=== PATIENT | male | born 1950 | race Two or more races ===

== ENCOUNTER → 2017-08-04 | Outpatient (CLI) | payer MEDICARE, OTHER, BC ==
--- NOTE | 2017-08-04 10:01 | RAD ---
CT of the abdomen and pelvis without contrast, 08/04/2017: History: Right flank pain, kidney stones Noncontrast scans were obtained utilizing the renal stone protocol. Comparison is made to a study from 11/23/2011. No intrarenal calculi are identified. There is minimal bilateral renal cortical scarring. The renal collecting systems systems and ureters are not dilated. No ureteral calculus is seen. The prostate gland is mildly enlarged and contains several calcifications. There is mild diffuse bladder wall thickening similar to that seen on the previous study. This is probably due to chronic bladder outlet obstruction related to the enlarged prostate. The liver is of lower than normal density in a diffuse pattern compatible with fatty change. There is a 3.5 cm area of relatively increased density in the right lobe of the liver. A similar size lesion of decreased density was present in this portion of the liver on the previous postcontrast CT exam. The gallbladder is unremarkable. No pancreatic abnormality is seen. The spleen is of normal size. Mild aortoiliac calcific plaquing is present without evidence of aneurysm. No abdominal or pelvic adenopathy is seen. Colonic diverticula are present, most numerous in the sigmoid region. No paracolonic inflammatory process is seen. The bowel loops are not dilated. The appendix is not clearly seen. No dilated appendix is evident. No free air or free fluid is present in the abdomen or pelvis. A small sclerotic focus in the left humeral neck is probably a bone island. There are moderate scattered hypertrophic degenerative changes in the spine. IMPRESSION: 1. No urinary tract calculi are identified. 2. Hepatic steatosis. 3. Right hepatic mass which is of similar size when compared to the 2012 exam. MR scanning may be helpful for characterization, if clinically indicated. 4. Sigmoid diverticulosis. 5. Nonspecific prostatic enlargement with mild associated diffuse bladder wall thickening. PQRS Compliance Statement: One or more of the following individualized dose reduction techniques were utilized for this examination: 1. Automated exposure control 2. Adjustment of the mA and/or kV according to patient size 3. Use of iterative reconstruction technique
== END | disposition home or self-care (01) ==
LOC: CT 09:00
PROVIDERS: ATTEND Family Medicine
DX: N20.0 Calculus of kidney (principal); K57.30 Diverticulosis of large intestine without perforation or abscess without bleeding; N40.0 Benign prostatic hyperplasia without lower urinary tract symptoms; K76.0 Fatty (change of) liver, not elsewhere classified
CPT/HCPCS: 74176

== ENCOUNTER → 2017-08-10 | Outpatient (CLI) | payer MEDICARE, OTHER, BC ==
--- NOTE | 2017-08-10 09:13 | RAD ---
Complete abdominal ultrasound 08/10/2017 Indication: Elevated LFTs. Comparison study: CT of the abdomen and pelvis without contrast August 04, 2017., CT of the abdomen and pelvis without contrast November 23, 2011 Findings: Ultrasound evaluation of the abdomen was performed. Static images are submitted to PACS. Visualized portions of the pancreas are grossly unremarkable. Visualized portions of the aorta and IVC are unremarkable. The gallbladder is normal in appearance without evidence of wall thickening, stones, or sludge. The portal veins somewhat poorly visualized but appears to be patent and demonstrate flow in normal direction. The liver is diffusely hyperechoic. There is a 2.5 cm hypoechoic mass in the right lobe of the liver some internal blood flow is present on color Doppler imaging. The liver is top normal in diameter measuring 16.8 cm longitudinally. The right kidney is normal in appearance measuring 9.6 cm in length. Left kidney is unremarkable in appearance measuring 9.9 cm in length. The spleen is normal in appearance measuring 10 cm in length. Common bile duct is nondilated at 4 mm. Impression: Hypoechoic mass in the right liver measuring up to 2.5 cm in size. Area correlates with a hyperdense focus on recent noncontrast enhanced CT. The mass appears similarly sized masses noted on CT from December 09, 2011. Changes in CT density may reflect relative changes to the hepatic steatosis. Recommend further characterization with a hepatic protocol MRI.
== END | disposition home or self-care (01) ==
LOC: US 07:40
PROVIDERS: ATTEND Family Medicine
DX: R94.5 Abnormal results of liver function studies (principal)
CPT/HCPCS: 76700